=== PATIENT | female | born 1990 | race Caucasian/White ===

== ENCOUNTER 2018-01-08 07:46 | Emergency (ER) | payer OTHER ==
[2018-01-08 08:04] VITALS: BP 119/90
--- NOTE | 2018-01-08 08:28 | UC ---
Respiratory Complaint HPI - HPI Summary HPI Summary: Patient presents with complaints of chest congestion and coughing that began after she moved into a new home that has been recently polyurethanes. She states the symptoms are worse when she first gets up and has been in the home all night, especially when she cannot open the windows because it cold out. She also states she will have coughing through out the day as well. She states her symptoms improve after she takes mucinex. She denies any history of asthma., fever, chills, chest pain, or shortness of breath, except when coughing. - History of Current Complaint Chief Complaint: UCRespiratory Stated Complaint: COUGH Time Seen by Provider: 01/08/18 08:05 Hx Obtained From: Patient ?: No Onset/Duration: Sudden Onset Timing: Intermittent Episodes Pain Intensity: 0 Character: Cough: Productive Aggravating Factors: Deep Breaths, Recumbent Position Alleviating Factors: Upright Position, Spontaneous Resolution Associated Signs And Symptoms: Positive: Negative - Risk Factors Pulmonary Embolism Risk Factors: Negative Cardiac Risk Factors: Negative Pseudomonas Risk Factors: Negative Tuberculosis Risk Factors: Negative - Allergies/Home Medications Allergies/Adverse Reactions: Allergies Allergy/AdvReac Type Severity Reaction Status Date / Time No Known Allergies Allergy Verified 01/08/18 08:04 PMH/Surg Hx/FS Hx/Imm Hx Previously Healthy: Yes - Surgical History Surgical History: None - Family History Known Family History: Positive: None - Social History Occupation: Student Lives: Alone Alcohol Use: Weekly Substance Use Type: None Smoking Status (MU): Smoker, Current Status Unknown Have You Smoked in the Last Year: No Review of Systems Constitutional: Negative Skin: Negative Eyes: Negative ENT: Negative Respiratory: Cough Cardiovascular: Negative Gastrointestinal: Negative Genitourinary: Negative Motor: Negative Neurovascular: Negative Musculoskeletal: Negative Neurological: Negative Psychological: Negative Is Patient Immunocompromised?: No All Other Systems Reviewed And Are Negative: Yes Physical Exam Triage Information Reviewed: Yes Appearance: Well-Appearing Vital Signs: Initial Vital Signs Temp 97.9 F 01/08/18 07:59 Pulse 62 01/08/18 07:59 Resp 20 01/08/18 07:59 BP 119/90 01/08/18 07:59 Pulse Ox 100 01/08/18 07:59 Vital Signs Reviewed: Yes Eye Exam: Normal ENT Exam: Normal Neck exam: Normal Respiratory Exam: Normal Cardiovascular Exam: Normal Abdominal Exam: Normal Musculoskeletal Exam: Normal Skin Exam: Normal Diagnostic Evaluation - Laboratory O2 Sat by Pulse Oximetry: 100 Respiratory Course/Dx - Course Course Of Treatment: Patient presents with clinical findings of reactive ariway , secondary to exposure to polyurethane fumes in her new home. She has not history of asthma. She has normal vital signs, and was prescribed prednisone, and albuterol HFA. She was dischare home in [facility], and in no respiratory distress while in the clinic. - Differential Dx/Diagnosis Differential Diagnosis/HQI/PQRI: Other - reactive airway responce Provider Diagnoses: reactive airway responce. Discharge - Sign-Out/Discharge Documenting (check all that apply): Discharge/Admit/Transfer - Discharge Plan Condition: Stable Disposition: HOME Prescriptions: Albuterol HFA INHALER* [Ventolin HFA Inhaler*] 1 - 2 puff INH Q4H PRN #1 mdi PRN Reason: reactive airway predniSONE TAB* [Deltasone TAB*] 20 mg PO BID #10 tab Patient Education Materials: Reactive Airways Disease (ED) Referrals: No Primary Care Phys,NOPCP [Primary Care Provider] - - Billing Disposition and Condition Condition: STABLE Disposition: HOME
== END 2018-01-08 08:15 | disposition home or self-care (01) ==
LOC: UCEAST 07:46
DX: J45.909 Unspecified asthma, uncomplicated (principal); Z72.0 Tobacco use
CPT/HCPCS: 99212; G0463

== ENCOUNTER 2019-05-30 13:08 | Emergency (ER) | payer OTHER ==
--- OUTSIDE RECORDS SUMMARY | 2019-05-30 14:14 | XMS REPORT | Continuity of Care Document ---
:1990 External Reference #:[id number] Author Name Charlotte Ruiz Care Team Providers Name Role Phone [facility] Primary Care Physician Unavailable Payers Date Identification Numbers Payment Provider Subscriber Policy Number: [id number] [employer] Student [employer] Almita Antoine PayID: [id number] [address] [place] [address] Problems Description No Active Problems Family History Date Family Member(s) Observation Comments General Heart Disease Social History Type Date Description Comments Sex Unknown Lives With Alone Occupation Student ETOH Use Occasionally consumes alcohol Tobacco Use Start: Unknown Patient has never smoked Smoking Status Reviewed: 04/05/19 Patient has never smoked Exercise Type/Frequency Exercises regularly Allergies, Adverse Reactions, Alerts Description No Known Drug Allergies Medications Active Medications SIG Qnty Indications Ordering Provider Date No Active Medications Unknown 04/05/2019 Cephalexin take 1 tablet by 15tabs S42.022D Catalino Reyes 04/05/2019 500mg mouth every 8 MD Shravan Tablets hours for 5 days History Medications Percocet 1 - 2 tabs by 30tabs Catalino Reyes 02/28/2019 - 5-325mg Tablets mouth every 4 - MD Shravan 04/04/2019 6 hours as needed for pain. Aspirin take 1 by mouth 28tabs Catalino Reyes 02/28/2019 - 325mg Tablets twice a day for MD Shravan 04/04/2019 two weeks Keflex take 1 tab by 21caps Catalino Reyes 02/28/2019 - 500mg Capsules mouth 3 times a MD Shravan 03/07/2019 day x 7 days until finished. No Active Medications Unknown 02/27/2019 - 02/28/2019 Vital Signs Date Vital Result Comment 04/05/2019 8:00am Height 68 inches 5'8" Weight 135.00 lb stated Heart Rate 70 /min BP Systolic 104 mmHg BP Diastolic 68 mmHg Respiratory Rate 12 /min Pain Level 0 BMI (Body Mass Index) 20.5 kg/m2 03/08/2019 9:27am Height 68 inches 5'8" Weight 135.00 lb Heart Rate 78 /min BP Systolic 110 mmHg BP Diastolic 68 mmHg Respiratory Rate 12 /min Pain Level 0 BMI (Body Mass Index) 20.5 kg/m2 02/27/2019 8:19am Height 68 inches 5'8" Weight 137.25 lb Heart Rate 70 /min BP Systolic 120 mmHg BP Diastolic 72 mmHg Respiratory Rate 12 /min BMI (Body Mass Index) 20.9 kg/m2 Procedures Date Code Description Status 02/28/2019 64376 Open TX Of Clavicular FX, Incl Intrnl Fixation When Completed Performed 02/28/2019 20939 Open TX Of Clavicular FX, Incl Intrnl Fixation When Completed Performed 02/28/2019 64175 Open TX Of Clavicular FX, Incl Intrnl Fixation When Completed Performed Encounters Type Date Location Provider Dx Diagnosis Office Visit 02/27/2019 Orthopedic Catalino Reyes S42.022A Disp fx of shaft 2:45p [facility] Cheney MD of left clavicle, init for clos fx Plan of Treatment 04/05/2019 - Catalino Cheney, MDS42.022D Displaced fracture of shaft of left clavicle, subsequent encNew Medication:Cephalexin 500 mg - take 1 tablet by mouth every 8 hours for 5 daysFollow up:Follow up: As needed
[2019-05-30 14:22] VITALS: BP 128/84
--- NOTE | 2019-05-30 19:43 | UC ---
Respiratory Complaint HPI - HPI Summary HPI Summary: WEEK AND A HALF OF COUGH, CONGESTION, FATIGUE. STATES HER SYMPTOMS HAVE ALL RESOLVED EXCEPT COUGH WHICH IS LINGERING. IT IS KEEPING HER FROM SLEEPING. - History of Current Complaint Chief Complaint: UCRespiratory Stated Complaint: COUGH Time Seen by Provider: 05/30/19 14:48 Hx Obtained From: Patient Onset/Duration: Gradual Onset, Lasting Days, Still Present Timing: Constant Severity Initially: Moderate Severity Currently: Mild Pain Intensity: 0 Pain Scale Used: 0-10 Numeric Character: Cough: Nonproductive Aggravating Factors: Nothing Associated Signs And Symptoms: Positive: URI, Nasal Congestion. Negative: Dyspnea, Fever, Wheezing - Allergies/Home Medications Allergies/Adverse Reactions: Allergies Allergy/AdvReac Type Severity Reaction Status Date / Time wood stain Allergy restrictive Uncoded 05/30/19 14:22 airway PMH/Surg Hx/FS Hx/Imm Hx Previously Healthy: Yes - Surgical History Surgical History: Yes Surgery Procedure, Year, and Place: fx collar bone with plate and 7 screws - Family History Known Family History: Positive: None - Social History Alcohol Use: Weekly Alcohol Amount: 5-6 Substance Use Type: None Smoking Status (MU): Never Smoked Tobacco Have You Smoked in the Last Year: No Review of Systems All Other Systems Reviewed And Are Negative: Yes Constitutional: Positive: Fatigue ENT: Positive: Nasal Discharge, Sinus Congestion Respiratory: Positive: Cough Cardiovascular: Positive: Negative Gastrointestinal: Positive: Negative Musculoskeletal: Positive: Myalgia Physical Exam Triage Information Reviewed: Yes Appearance: Well-Appearing, No Pain Distress, Well-Nourished Vital Signs: Initial Vital Signs Temp 98.4 F 05/30/19 14:17 Pulse 104 05/30/19 14:17 Resp 18 05/30/19 14:17 BP 128/84 05/30/19 14:17 Pulse Ox 98 05/30/19 14:17 Vital Signs Reviewed: Yes Eyes: Positive: Conjunctiva Clear ENT: Positive: Hearing grossly normal, Pharynx normal, TMs normal Neck: Positive: Supple Respiratory Exam: Normal Cardiovascular Exam: Normal Abdomen Description: Positive: Soft Musculoskeletal: Positive: No Edema Neurological: Positive: Alert Psychological: Positive: Age Appropriate Behavior Skin: Negative: Rashes Respiratory Course/Dx - Differential Dx/Diagnosis Provider Diagnosis: Acute bronchitis Discharge ED - Sign-Out/Discharge Documenting (check all that apply): Patient Departure All imaging exams completed and their final reports reviewed: No Studies - Discharge Plan Condition: Stable Disposition: HOME Prescriptions: Azithromyxin EDUARDO (NF) [Z-Eduardo (Zithromax) 250 mg tabs #6] 2 tab PO .TODAY, THEN 1 DAILY #6 tab Benzonatate CAP* [Tessalon CAP*] 1 - 2 cap PO TID PRN #30 cap PRN Reason: Cough Codeine Phosphate/Guaifenesin [Codeine-Guaifen 10-100 mg/5 ml] 5 - 10 ml PO Q6H PRN #150 ml MDD 40ML PRN Reason: Cough predniSONE TAB* [Deltasone TAB*] 50 mg PO DAILY #5 tab Patient Education Materials: Acute Bronchitis (ED) Referrals: Pending Sale To [facility] [Provider Group] - If Needed Additional Instructions: GIVEN THAT MOST OF YOUR SYMPTOMS HAVE RESOLVED YOUR ILLNESS IS LIKELY VIRALLY MEDIATED. REST, HYDRATE, OTC MEDS NEEDED. WILL ALSO TREAT WITH PREDNISONE TO HELP WITH AIRWAY INFLAMMATION AND COUGH MEDICINE. IF YOU DO NOT CONTINUE TO IMPROVE WITH THE ABOVE TREATMENT GO AHEAD AND START THE ANTIBIOTICS. SEEK FOLLOW-UP WITH YOUR PCP IF YOU ARE NOT IMPROVING OVER THE NEXT 1-2 WEEKS. - Billing Disposition and Condition Condition: STABLE Disposition: Home
== END 2019-05-30 15:15 | disposition home or self-care (01) ==
LOC: UCEAST 13:08
DX: J20.9 Acute bronchitis, unspecified (principal); R09.81 Nasal congestion; Z91.09 Other allergy status, other than to drugs and biological substances
CPT/HCPCS: 99212; G0463

== ENCOUNTER 2019-07-10 17:34 | Emergency (ER) | payer OTHER ==
[2019-07-10 18:07] VITALS: BP 135/97
--- NOTE | 2019-07-10 19:01 | ED ---
Head Injury - HPI Summary HPI Summary: This patient is a 28 year old F presenting to [facility] with a chief complaint of concussion due to head injury since almost 48 hrs ago when injury occurred 2 days ago at 2100/2130. Symptoms aggravated by nothing. Symptoms alleviated by nothing. Patient reports 12 ft board was stuck and came crashing down on head. Pt does not know if LOC. Pt reports immediately afterward pupils dilated and even and was relatively with it. Pt reports within 3 min she was vomiting (4x within 30 min), very nauseated which was alleviated by eating, face hottened, body became very cold for hours after, and pt seemed stoned/out of it. Pt reports migraine, FARIAS, nausea on 1 day ago. 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 Pt reports she slept 17-20 hrs which is very unusual. Reports recent concussion at beginning February when she broke her collar bone at same time. Pt reports other 4 occurred in high school and early college. Pt reports the past 24 hours she has had a decent migraine, has been sensitive to light and noise, and has been very nauseated (particularly after waking up). Pt reports this is the worst concussion she has had. - History Of Current Complaint Chief Complaint: EDHeadInjury Stated Complaint: CONCUSSION PER PT Time Seen by Provider: 07/10/19 18:40 Hx Obtained From: Patient Mechanism Of Injury: Direct Blow Onset/Duration: Started Days Ago - 2, Still Present Severity Currently: Mild Pain Intensity: 5 Pain Scale Used: 0-10 Numeric Aggravating Factor(s): Other: - nothing Alleviating Factor(s): Other: - eating Associated Signs And Symptoms: Nausea, Vomiting, Headache - and migraine, Other : - face hottened, body cold, "stoned", fatigue, sensitive to light and noise, pupils dilated and even - Allergies/Home Medications Allergies/Adverse Reactions: Allergies Allergy/AdvReac Type Severity Reaction Status Date / Time wood stain Allergy restrictive Uncoded 07/10/19 18:05 airway PMH/Surg Hx/FS Hx/Imm Hx Endocrine/Hematology History: Reports: Hx Thyroid Disease - graves disease, no meds Denies: Hx Diabetes Cardiovascular History: Denies: Hx Hypertension Respiratory History: Reports: Other Respiratory Problems/Disorders - restrictive airway issues with sealer in her house, ok now Denies: Hx Asthma, Hx Chronic Obstructive Pulmonary Disease (COPD) GI History: Denies: Hx Ulcer Sensory History: Denies: Hx Contacts or Glasses, Hx Hearing Aid Opthamlomology History: Denies: Hx Contacts or Glasses Psychiatric History: Reports: Hx Anxiety - no meds - Surgical History Surgery Procedure, Year, and Place: fx collar bone with plate and 7 screws Hx Anesthesia Reactions: No - Immunization History Date of Tetanus Vaccine: unknown Date of Influenza Vaccine: 2013 Infectious Disease History: Yes Infectious Disease History: Denies: Hx Hepatitis, Hx Human Immunodeficiency Virus (HIV), Traveled Outside the [place] in Last 30 Days - Family History Known Family History: Positive: Other - cancer(liver, prostate), enzyme deficiency, mental illness, aneurysms - Social History Alcohol Use: Weekly Alcohol Amount: 5-6 Hx Substance Use: No Substance Use Type: Reports: None Hx Tobacco Use: No Smoking Status (MU): Never Smoked Tobacco Have You Smoked in the Last Year: No Review of Systems Positive: Fatigue, Other - face hottened, body cold, "stoned", sensitive to light and noise Positive: Other - pupils dilated and even Positive: Vomiting, Nausea Neurological: Other - head injury, concussion Positive: Headache All Other Systems Reviewed And Are Negative: Yes Physical Exam - Summary Physical Exam Summary: Constitutional: Well-developed, Well-nourished, Alert. (-) Distressed Skin: Warm, Dry HENT: Normocephalic; Atraumatic Eyes: Conjunctiva normal Neck: Musculoskeletal ROM normal neck. (-) JVD, (-) Stridor, (-) Tracheal deviation Cardio: Rhythm regular, rate normal, Heart sounds normal; Intact distal pulses; The pedal pulses are 2+ and symmetric. Radial pulses are 2+ and symmetric. (-) Murmur Pulmonary/Chest wall: Effort normal. (-) Respiratory distress, (-) Wheezes, (-) Rales Abd: Soft, (-) tenderness, (-) Distension, (-) Guarding, (-) Rebound Musculoskeletal: (-) Edema Lymph: (-) Cervical adenopathy Neuro: Alert, Oriented x3 Psych: Mood and affect Normal Triage Information Reviewed: Yes Vital Signs On Initial Exam: Initial Vitals Temp Pulse Resp BP Pulse Ox 98.2 F 86 16 135/97 99 07/10/19 18:01 07/10/19 18:01 07/10/19 18:01 07/10/19 18:01 07/10/19 18:01 Vital Signs Reviewed: Yes Procedures - Sedation Patient Received Moderate/Deep Sedation with Procedure: No Diagnostics - Vital Signs Vital Signs Temp Pulse Resp BP Pulse Ox 07/10/19 18:01 98.2 F 86 16 135/97 99 - Laboratory Lab Statement: Any lab studies that have been ordered have been reviewed, and results considered in the medical decision making process. Head Injury Course/Dx Course Of Treatment: This patient is a 28 year old F presenting to [facility] with a chief complaint of concussion due to head injury since almost 48 hrs ago when injury occurred 2 days ago at 2100/2130. Pt does not know if LOC. Pt reports immediately afterward pupils dilated and even and was relatively with it. Pt reports within 3 min she was vomiting (4x within 30 min), very nauseated which was alleviated by eating, face hottened, body became very cold for hours after , and pt seemed stoned/out of it. Pt reports migraine, FARIAS, nausea on 1 day ago. Pt reports she slept 17-20 hrs which is very unusual. Pt reports the past 24 hours she has had a decent migraine, has been sensitive to light and noise, and has been very nauseated (particularly after waking up). Physical Exam Findings reveals no abnormalities. Patient will be discharged with prescription for metoclopramide 10 mg PO and follow up with [facility]. The patient is agreeable with this plan. - Diagnoses Provider Diagnoses: Concussion Discharge ED - Sign-Out/Discharge Documenting (check all that apply): Patient Departure - discharge - Discharge Plan Condition: Stable Disposition: HOME Prescriptions: Metoclopramide TAB* [Reglan TAB*] 10 mg PO Q6H PRN #20 tab PRN Reason: Headache Patient Education Materials: Concussion (ED) Print Language: IRANIAN Referrals: [facility] - Sudhir BEASLEY [Primary Care Provider] - Additional Instructions: You should not participate in sports until you have been symptom-free for 5 days. - Billing Disposition and Condition Condition: STABLE Disposition: Home - Attestation Statements Document Initiated by Scribe: Yes Documenting Scribe: Khushbu Rojas Provider For Whom Scribe is Documenting (Include Credential): Dr. Adrianna Meeks MD Scribe Attestation: I, Khushbu Rojas, scribed for Dr. Adrianna Meeks MD on 07/10/19 at 2141. Scribe Documentation Reviewed: Yes Provider Attestation: The documentation as recorded by the scribe, Khushbu Rojas accurately reflects the service I personally performed and the decisions made by me, Dr. Adrianna Meeks MD Status of Scribe Document: Viewed
== END 2019-07-10 18:58 | disposition home or self-care (01) ==
LOC: ED 17:34
DX: S06.0X9A Concussion with loss of consciousness of unspecified duration, initial encounter (principal); W22.8XXA Striking against or struck by other objects, initial encounter; Y92.9 Unspecified place or not applicable; R11.2 Nausea with vomiting, unspecified; R51 Headache; R53.83 Other fatigue; E03.9 Hypothyroidism, unspecified; F41.9 Anxiety disorder, unspecified
CPT/HCPCS: 99282